=== PATIENT | female | born 1995 | race Caucasian/White ===

== ENCOUNTER 2016-08-29 14:57 | Emergency (ER) | payer OTHER ==
--- NOTE | 2016-08-29 15:18 | ED Physician Documentation ---
Upper Respiratory Symptoms - HISTORIAN Historian: patient - HPI Chief Complaint: Cough/ Upper Respiratory Further Comments: yes (One week history of cough, having some pain with breathing, productive of brown color. No blood. No wheezing noted. No sore throat, is having some sinus congestion. ears are not plug up, no fever or chills,) - ROS CONST/EYES: denies: weakness - PAST HX Lung Disease: none PE Risk Factors: other (pregnance) Surgeries/Procedures: none Immunizations: referred to PCP Allergies/Adverse Reactions: Allergies Allergy/AdvReac Type Severity Reaction Status Date / Time No Known Allergies Allergy Verified 08/29/16 15:16 Home Medications: Ambulatory Orders Medication Instructions Recorded Amoxicillin [Amoxil] 500 mg PO TID #30 capsule 08/29/16 Chs256/Iron Fumarate/FA/Dss 1 each PO DAILY 08/29/16 [ 19 Tablet] - SOCIAL HX Smoking History: less than 1 pack/day (2 ciragrettes a day) Alcohol Use: none Drug Use: none - FAMILY HX Family History: no significant history - VITAL SIGNS Vital Signs: Vital Signs Temp Pulse Resp BP Pulse Ox 110/68 03/19/16 21:10 Upper Respiratory Symptoms - EXAM General Appearance: mild distress EENT: eyes nml inspection, nose nml, pharyngeal erythema (mild). No: TM erythema, TM dullness (R), TM dullness (L) Neck: normal inspection, supple. No: lymphadenopathy Respiratory: no resp. distress, breath sounds nml, speaks full sentences, rhonchi (few right base). No: respiratory distress, prolonged expirations, decreased air movement, wheezes, rales Abdomen: non-tender, no organomegaly, nml bowel sounds, no distention, tenderness, other (FHT 158) Skin: color nml, no rash, warm,dry Neuro/Psych: oriented x3, neuro intact Discharge Clincal Impression: Bronchitis Additional Instructions: Drink a lot of fluids. Check your temp over the next several days. If you developed any respiratory difficulties to be seen or return to the ED. Take Amoxil as directed. Home Medications: Ambulatory Orders Amoxicillin [Amoxil] 500 mg PO TID #30 capsule 08/29/16 [id number]/Iron Fumarate/FA/Dss [ 19 Tablet] 1 each PO DAILY 08/29/16 Condition: Stable Disposition: 01 HOME, SELF-CARE Decision to Admit: NO Date of Decison to Admit: 08/29/16 Decision Time: 15:23
[2016-08-29 15:21] VITALS: BP 107/65
== END 2016-08-29 15:31 | disposition home or self-care (01) ==
LOC: ED 14:57
DX: J20.9 Acute bronchitis, unspecified (principal)
CPT/HCPCS: 99282

== ENCOUNTER 2016-10-19 17:27 | Emergency (ER) | payer OTHER ==
[2016-10-19 18:04] LABS: MEAN CORPUSCULAR HEMOGLOBIN 32.5 pg (28.0-34.0)
[2016-10-19 18:07] LABS: APPEARANCE,URINE Clear (CLEAR); COLOR,URINE Yellow (YELLOW); OCCULT BLOOD,URINE Negative (NEGATIVE); UROBILINOGEN URINE 0.2 Eu (0.2-1.0)
[2016-10-19 18:23] LABS: EOSINOPHILS % 1 % (0-7); MONOCYTES % 4 % (0-11); SEGMENTED NEUTROPHILS % 55 % (39-79)
[2016-10-19 18:24] LABS: eGFR (African) > 60; eGFR (Non-African) > 60
--- NOTE | 2016-10-19 19:01 | ED Physician Documentation ---
Abdominal Pain - HISTORIAN Historian: patient - HPI Stated Complaint: RLQ pain Chief Complaint: Abdominal Pain Additonal Information: began this am, intensifying throughout day, always right lower quadrant, some radiation to right low back, no dysuria, positive nausea, minimal diarrhea, low grade fever Onset: hours (9) Duration: constant, sudden-onset, worse Timing: still present Context: denies: out of country travel, bad food, recent trauma Severity: moderate Quality: sharp Front/Back of Body, Lg (Color): 1 - pain Associated Symptoms: fever, nausea, diarrhea. denies: vomiting Exacerbated by: nothing Relieved by: nothing Further Comments: no - ROS CONST: no problems GI/: none CVS/RESP: none EYES/ENT: none MS/SKIN/LYMPH: none NEURO/PSYCH: none - SOCIAL HX Smoking History: cigarettes Alcohol Use: none Drug Use: none - FAMILY HX Family History: none - PAST HX Past History: other (20 week IUP) Ischemic Bowel Risk Factors: none Other History: none Surgeries/Procedures: none Immunizations: referred to PCP Home Medications: Ambulatory Orders Medication Instructions Recorded [id number]/Iron Fumarate/FA/Dss 1 each PO DAILY 08/29/16 [ 19 Tablet] Allergies/Adverse Reactions: Allergies Allergy/AdvReac Type Severity Reaction Status Date / Time No Known Allergies Allergy Verified 10/19/16 17:54 - VITAL SIGNS Vital Signs: Vital Signs Temp Pulse Resp BP Pulse Ox 99.1 F 82 16 102/71 100 10/19/16 17:49 10/19/16 17:49 10/19/16 17:49 10/19/16 17:49 10/19/16 17:49 - REVIEWED ASSESSMENTS Nursing Assessment Reviewed: Yes Vitals Reviewed: Yes Progress - Results/Orders Results/Orders: cbc, cmp, ua unremarkable - Progress Progress: pt's pain untreated, kept npo until US can be done Critical Care Note - Critical Care Note Total Time (mins): 0 ED Results Lab/Radiology - Lab Results Lab Results: Lab Results 10/19/16 10/19/16 10/19/16 17:55 17:55 17:55 WBC RBC Hgb Hct MCV MCH MCHC RDW Plt Count Seg Neutrophils % Band Neutrophils % Lymphocytes % Monocytes % Eosinophils % Plt Morphology Comment RBC Morph Comment Sodium 135 mmol/L L mmol/L (136-145) Potassium 3.4 mmol/L L mmol/L (3.5-5.0) Chloride 104 mmol/L mmol/L (98-110) Carbon Dioxide 28 mmol/L mmol/L (20-32) BUN 6 mg/dL L mg/dL (10-26) Creatinine 0.6 mg/dL mg/dL (0.4-1.5) Estimated Creat Clear 165 Est GFR ( Amer) > 60 (60 - ) Est GFR (Non-Af Amer) > 60 (60 - ) Glucose 99 mg/dL mg/dL (70-99) Calcium 9.7 mg/dL mg/dL (8.5-10.5) Total Bilirubin 0.5 mg/dL mg/dL (0.2-1.2) AST 19 U/L U/L (0-41) ALT 13 U/L U/L (0-45) Alkaline Phosphatase 86 U/L U/L (46-116) Total Protein 7.2 g/dL g/dL (6.0-8.5) Albumin 4.2 g/dL g/dL (3.0-5.5) Urine Color Yellow (YELLOW) Urine Appearance Clear (CLEAR) Urine pH 7.0 (5.0 - 8.0) Ur Specific [place] 1.020 (1.010-1.030) Urine Protein Negative mg/dL mg/dL (NEGATIVE) Urine Ketones Trace mg/dL mg/dL (NEGATIVE) Urine Occult Blood Negative (NEGATIVE) Urine Nitrite Negative (NEGATIVE) Urine Bilirubin Negative (NEGATIVE) Urine Urobilinogen 0.2 Eu Eu (0.2-1.0) Ur Leukocyte Esterase Negative (NEGATIVE) Urine Glucose Negative mg/dL mg/dL (NEGATIVE) Urine HCG, Qual Positive H (NEGATIVE) 10/19/16 17:55 WBC 6.90 K/ul K/ul (4.00-12.00) RBC 3.95 M/ul M/ul (3.90-5.20) Hgb 12.8 g/dL g/dL (12.0-16.0) Hct 37.3 % % (34.5-46.5) MCV 94.3 fl fl (80.0-100.0) MCH 32.5 pg pg (28.0-34.0) MCHC 34.5 g/dL g/dL (30.0-36.0) RDW 12.5 % % (11.3-14.3) Plt Count 184 K/mm3 K/mm3 (130-400) Seg Neutrophils % 55 % % (39-79) Band Neutrophils % 33 % H % (0-12) Lymphocytes % 7 % L % (16-50) Monocytes % 4 % % (0-11) Eosinophils % 1 % % (0-7) Plt Morphology Comment Normal (NORMAL) RBC Morph Comment Normal (NORMAL) Sodium Potassium Chloride Carbon Dioxide BUN Creatinine Estimated Creat Clear Est GFR ( Amer) Est GFR (Non-Af Amer) Glucose Calcium Total Bilirubin AST ALT Alkaline Phosphatase Total Protein Albumin Urine Color Urine Appearance Urine pH Ur Specific [place] Urine Protein Urine Ketones Urine Occult Blood Urine Nitrite Urine Bilirubin Urine Urobilinogen Ur Leukocyte Esterase Urine Glucose Urine HCG, Qual - Radiology Radiology Impressions: none ordered, no US available at this hosp. - Orders Orders: ED Orders Category Date Time Status CBC/PLATELET/DIFF Routine Lab 10/19/16 17:55 Completed CMP Routine Lab 10/19/16 17:55 Completed URINALYSIS Routine Lab 10/19/16 17:55 Completed URINE HCG Routine Lab 10/19/16 17:55 Completed Abdominal Pain Physical Exam - Physical Exam General Appearance: alert, moderate distress EENT: eye inspection normal, ENT inspection normal, pharynx normal, no signs of dehydration, DALIA, no nystagmus, TM's nml NECK: normal inspection, thyroid normal, supple RESPIRATORY: no resp distress, chest non-tender, breath sounds normal CVS: reg rate & rhythm, heart sounds normal, equal pulses, no murmur, no gallop ABDOMEN: soft, no organomegaly, tenderness (right lower qwuadrant), decreased BS (very quiet), McBurney's point tenderne, rebound, other (positive heel slap on right side, right lower quadrant). No: mass BACK: other (positive L5-S1 tenderness right) SKIN: warm/dry, normal color EXTREMITIES: non-tender, normal range of motion, no evidence of injury NEURO: oriented X3, CN's nml as tested, motor nml, sensation nml Vital Signs: Vital Signs Temp Pulse Resp BP Pulse Ox 99.1 F 82 16 102/71 100 10/19/16 17:49 10/19/16 17:49 10/19/16 17:49 10/19/16 17:49 10/19/16 17:49 Discharge Clincal Impression: Abdominal pain Qualifiers: Abdominal location: right lower quadrant Qualified Code(s): R10.31 - Right lower quadrant pain Home Medications: Ambulatory Orders Bin578/Iron Fumarate/FA/Dss [ 19 Tablet] 1 each PO DAILY 08/29/16 Comments: Case discussed with OB geographic information systems director and ER physician at [facility]. Accept transfer by private vehicle through ER for US and OB eval. Condition: Stable Disposition: 02 XFER SHT-TRM HOSP Decision to Admit: NO Decision Time: 19:00
[2016-10-19] MEDS ORDERED: ONDANSETRON HCL 4 MG TAB.RAPDIS ONE (19:16)
[2016-10-19] MEDS: ONDANSETRON HCL 4 MG TAB.RAPDIS PO ONE (19:20)
[2016-10-19 19:51] VITALS: BP 108/70
== END 2016-10-19 19:00 | disposition short-term general hospital (02) ==
LOC: ED 17:27
DX: R10.31 Right lower quadrant pain (principal)
CPT/HCPCS: 80053; 81002; 81025; 85025; A9270; 99283; 99284

== ENCOUNTER 2017-02-15 17:51 | Emergency (ER) | payer OTHER ==
[2017-02-15 18:12] VITALS: BP 110/82
--- NOTE | 2017-02-15 18:32 | ED Physician Documentation ---
Abscess - HPI Stated Complaint: boil left inner thigh Chief Complaint: Abscess Additional Information: abscess lt inner thigh recurrent for past 2 yrs. pt is 37wks pg saw ob yest - did pelvic but did not respond to it and pt did not call attention to it. FHT= 135 slight vaginal spotting since pelvic yesterday-denies crapms or labor like pains Timing: worse (slight exab of abscess past several days. has had it for 2 yrs and it flares and remisses) Quality: itchy, painful Identified Cause?: No Context: Medication Exposure: other (pre vits and occ alb neb for allergic asthma like episodes) - ROS CONST: none CVS/RESP: none EYES/ENT: none GI/: none MS/SKIN/LYMPH: none NEURO/PSYCH: none - PAST HX Past History: none, other (pt is PARA 1-0-0-1 2) Surgeries/Procedures: No Allergies/Adverse Reactions: Allergies Allergy/AdvReac Type Severity Reaction Status Date / Time No Known Allergies Allergy Verified 02/15/17 18:04 Home Medications: Ambulatory Orders Medication Instructions Recorded [id number]/Iron Fumarate/FA/Dss 1 each PO DAILY 08/29/16 [ 19 Tablet] Cephalexin [Keflex] 500 mg PO QID #35 capsule 02/15/17 - SOCIAL HX Smoking History: cigarettes Alcohol Use: none Drug Use: none - FAMILY HX Family History: asthma - VITAL SIGNS Vital Signs: Vital Signs Temp Pulse Resp BP Pulse Ox 98.4 F 107 H 16 110/82 96 02/15/17 18:00 02/15/17 18:00 02/15/17 18:00 02/15/17 18:00 02/15/17 18:00 - REVIEWED ASSESSMENTS Nursing Assessment Reviewed: Yes Vitals Reviewed: Yes Abscess Physical Exam - EXAM General Appearance: mild distress Skin: warm,dry, erythema (plus tenderness of the 1.5cm nodule lt groin). No: cyanotic, diaphoretic, pallid, pointing fluctuant with lymphangitis Symptoms: warmth, tenderness Extremities: nml ROM, no edema EENT: eyes nml inspection Neck: trachea midline Respiratory: no resp distress, chest non-tender, breath sounds normal CVS: reg. rate & rhythm, heart sounds nml Neuro/Psych: oriented x3, mood/affect nml Discharge Clincal Impression: non fluctuant recurrent abscess groin, 37weeks ut , [id number], no active labor Prescriptions: Cephalexin [Keflex] 500 mg PO QID #35 capsule Referrals: Javier Langley MD [Primary Care Provider] - 2 Days Home Medications: Ambulatory Orders Omj650/Iron Fumarate/FA/Dss [ 19 Tablet] 1 each PO DAILY 08/29/16 Cephalexin [Keflex] 500 mg PO QID #35 capsule 02/15/17 Comments: to notify OB DOCTOR at next visit Condition: Good Disposition: HOME, SELF-CARE Decision to Admit: NO Decision Time: 18:32
== END 2017-02-15 18:20 | disposition home or self-care (01) ==
LOC: ED 17:51
DX: O23.593 Infection of other part of genital tract in pregnancy, third trimester (principal)
CPT/HCPCS: 99283; 99284

== ENCOUNTER 2017-03-25 17:40 | Emergency (ER) | payer OTHER ==
[2017-03-25 17:51] VITALS: BP 155/84
--- NOTE | 2017-03-25 18:18 | ED Physician Documentation ---
General Adult - HISTORIAN Historian: patient - HPI Stated Complaint: Sore to the Inner Thigh Chief Complaint: General Adult Onset: days ago Timing: still present Severity: moderate Further Comments: yes (Pt is a 21 yo female with an abscess on the L side of her groin. Pt had a similar larger abscess lateral to this on her L thigh several weeks ago. Childbirth 3 weeks ago.) - ROS CONST: no problems EYES/ENT: none CVS/RESP: none GI/: none MS/SKIN/LYMPH: other (abscess ) - PAST HX Past History: other (recent childbirth) Allergies/Adverse Reactions: Allergies Allergy/AdvReac Type Severity Reaction Status Date / Time No Known Allergies Allergy Verified 03/25/17 17:51 Home Medications: Ambulatory Orders Medication Instructions Recorded [id number]/Iron Fumarate/FA/Dss 1 each PO DAILY 08/29/16 [ 19 Tablet] - SOCIAL HX Smoking History: cigarettes - FAMILY HX Family History: No - VITAL SIGNS Vital Signs: Vital Signs Temp Pulse Resp BP Pulse Ox 98 F 97 H 18 155/84 99 03/25/17 17:40 03/25/17 17:40 03/25/17 17:40 03/25/17 17:40 03/25/17 17:40 - REVIEWED ASSESSMENTS Nursing Assessment Reviewed: Yes Vitals Reviewed: Yes Progress - Progress Progress: Rx Doxycycline 100 mg. Take one by mouth every 12 hrs for 10 days. 1st dose in ER. Rx [place]vue (5/325). Take 1 or 2 every 4 to 6 hrs as needed for moderate to severe pain. 2 tablets --> home. General Adult Physical Exam - PHYSICAL EXAM GENERAL APPEARANCE: mild distress NECK: normal inspection, supple RESPIRATORY: no resp distress, chest non-tender CVS: reg rate & rhythm, heart sounds normal ABDOMEN: soft, normal bowel sounds SKIN: other (2 cm abscess L thigh/groin, tender, erythematous) EXTREMITIES: non-tender, normal range of motion, no evidence of injury NEURO: oriented X3, motor nml, sensation nml Discharge Clincal Impression: Abscess Referrals: Javier Langley MD [Primary Care Provider] - Home Medications: Ambulatory Orders Wcm590/Iron Fumarate/FA/Dss [ 19 Tablet] 1 each PO DAILY 08/29/16 Condition: Good Disposition: HOME, SELF-CARE Decision to Admit: NO Decision Time: 18:18
[2017-03-25] MEDS: DOXYCYCLINE MONOHYDRATE 100 MG CAPSULE PO ONE (18:36)
[2017-03-25] MEDS: HYDROcodone /APAP 5/325 1 EACH TABLET PO ONE (18:37)
== END 2017-03-25 18:43 | disposition home or self-care (01) ==
LOC: ED 17:40
DX: L02.91 Cutaneous abscess, unspecified (principal)
CPT/HCPCS: 99283

== ENCOUNTER 2017-05-12 19:23 | Emergency (ER) | payer OTHER ==
--- NOTE | 2017-05-12 19:41 | ED Physician Documentation ---
Lower Extremity Injury - HISTORIAN Historian: patient - HPI Chief Complaint: Lower Extremity Injury Onset: minutes (20) Where: home Severity: moderate Context: direct blow (patient states that she was running after her son when he stopped and hit her knee against him, he did not have any injuries,) Associated Symptoms:: denies: tingling, numbness distally, popping sensation Modifying Factors:: pain on movement - ROS CONST: denies: fever, chills - PAST HX Past History: none Immunizations: referred to PCP Allergies/Adverse Reactions: Allergies Allergy/AdvReac Type Severity Reaction Status Date / Time No Known Allergies Allergy Verified 05/12/17 19:49 Home Medications: Ambulatory Orders Medication Instructions Recorded Norgestimate-Ethinyl Estradiol 1 tab PO D 05/12/17 [Sprintec 28 Day Tablet] - SOCIAL HX Smoking History: less than 1 pack/day (08/16 ppd) Alcohol Use: none Drug Use: none - FAMILY HX Family History: no significant history - VITAL SIGNS Vital Signs: Vital Signs Temp Pulse Resp BP Pulse Ox 68 14 125/75 100 05/12/17 19:24 05/12/17 19:24 05/12/17 19:24 05/12/17 19:24 - REVIEWED ASSESSMENTS Nursing Assessment Reviewed: Yes Vitals Reviewed: Yes ED Results Lab/Radiology - Radiology Radiology Impressions: Patient Study Name: ZAHEER DICK Date: May 12, 2017 8:19:26 PM CDT Modality Type: CR Gender: F Description: LOWER EXTREMITY : 95 Institution: [facility] Physician: NAVIN DODGE - ER Examination: Plain film knee History: Knee discomfort Findings: 3 views of the knee demonstrates normal cortical margins. No fracture. No dislocation. No joint effusion. No soft tissue irregularity. Impression: No acute osseous abnormality - Orders Orders: ED Orders Category Date Time Status Knee Immobilizer 1T Care 05/12/17 20:46 Active KNEE 3 VIEWS [RAD] Stat Exams 05/12/17 Completed Lower Extremities Injury Phy - Physical Exam General Appearance: alert, mild distress Hips: bilateral hip: non-tender, normal inspection, normal range of motion, no evidence of injury Legs: bilateral: non-tender, normal inspection, normal range of motion, no evidence of injury Knees: right: pain, soft tissue tenderness (medial superior knee), left: non- tender, normal inspection, no evidence of injury, bilateral: normal range of motion, N/A: deformity (none), ecchymosis (none), joint effusion (none), swelling (none) Ankle: bilateral: non-tender, normal inspection, normal range of motion, no evidence of injury DTR - Lower Extremities: knee (R): 2+, knee (L): 2+, ankle (R): 2+, ankle (L): 2 + Ligaments: pain on anterior drawer, pain on posterior drawer, pain on medial stress. No: laxity on anterior drawer, laxity on posterior drawe, laxity on medial stress, pain on lateral stress, laxity on lateral stress Gait: limited by pain Neuro/Vascular/Tendon: no vascular compromise, motor nml, sensation nml Resp/CVS: chest non-tender, breath sounds nml, heart sounds nml, no resp. distress, lungs clear, reg. rate & rhythm Discharge Clincal Impression: Contusion, knee Qualifiers: Encounter type: initial encounter Laterality: right Qualified Code(s): S80.01XA - Contusion of right knee, initial encounter Referrals: Javier Langley MD [Primary Care Provider] - 2 Days Additional Instructions: Keep a cool compress on the knee for the next 12 hours. Take some Aleve 220mg tablets, 2 tablets with food twice a day as needed for pain. Condition: Stable Disposition: 01 HOME, SELF-CARE Decision to Admit: NO Date of Decison to Admit: 05/12/17 Decision Time: 20:36
--- NOTE | 2017-05-12 20:52 | Diagnostic Imaging Report ---
NAVIN DODGE [facility] [address] [facility] [address] Report Submission Date: May 12, 2017 8:41:27 PM CDT Patient Study Name: ZAHEER DICK Date: May 12, 2017 8:19:26 PM CDT Modality Type: CR Gender: F Description: LOWER EXTREMITY : 95 Institution: [facility] Physician: NAVIN DODGE Examination: Plain film knee History: Knee discomfort Findings: 3 views of the knee demonstrates normal cortical margins. No fracture. No dislocation. No joint effusion. No soft tissue irregularity. Impression: No acute osseous abnormality Electronically signed on May 12, 2017 8:41:27 PM CDT by: Maykel PHELAN
[2017-05-12 21:33] VITALS: BP 124/73
== END 2017-05-12 20:55 | disposition home or self-care (01) ==
LOC: ED 19:23
DX: S80.01XA Contusion of right knee, initial encounter (principal)
CPT/HCPCS: 73562; L1830; 99283

== ENCOUNTER 2017-06-21 19:25 | Emergency (ER) | payer OTHER ==
[2017-06-21 20:04] LABS: BASOPHILS % 0.7 (0.0-1.5); MEAN CORPUSCULAR HEMOGLOBIN 29.1 pg (28.0-34.0); MONOCYTES % 4.8 % (0.0-11.0); NEUTROPHILS # 3.3 # k/uL (1.4-7.7)
[2017-06-21] MEDS: 0.9 % SODIUM CHLORIDE 1,000 ML IV ONE (20:05)
[2017-06-21] MEDS: ONDANSETRON HCL/PF 4 MG/ 2ML VIAL IVP ONE (20:06)
[2017-06-21 20:19] LABS: eGFR (African) > 60; eGFR (Non-African) > 60
--- NOTE | 2017-06-21 20:25 | ED Physician Documentation ---
General Adult - HISTORIAN Historian: patient - HPI Stated Complaint: Right side abdominal pain Chief Complaint: General Adult Onset: hours Timing: still present Severity: moderate Further Comments: yes (Pt is a 21 yo female with RLQ pain that began this am. Pt has had similar presentation in the past. Pt is 3 months post childbirth. Pt is on control and is not . Pt has had some diarrhea and nausea, but no vomiting. Pt has not had urinary sx.) - ROS CONST: fever, chills EYES/ENT: none CVS/RESP: none GI/: abdominal pain, nausea, diarrhea MS/SKIN/LYMPH: none - PAST HX Past History: other (childbirth 3 mos ago) Allergies/Adverse Reactions: Allergies Allergy/AdvReac Type Severity Reaction Status Date / Time No Known Allergies Allergy Verified 06/21/17 19:42 Home Medications: Ambulatory Orders Medication Instructions Recorded Norgestimate-Ethinyl Estradiol 1 tab PO D 05/12/17 [Sprintec 28 Day Tablet] Cephalexin [Keflex] 500 mg PO Q12H #14 capsule 06/21/17 - SOCIAL HX Smoking History: cigarettes - FAMILY HX Family History: No - VITAL SIGNS Vital Signs: Vital Signs Temp Pulse Resp BP Pulse Ox 100.9 F H 82 16 120/86 100 06/21/17 19:28 06/21/17 19:28 06/21/17 19:28 06/21/17 19:28 06/21/17 19:28 - REVIEWED ASSESSMENTS Nursing Assessment Reviewed: Yes Vitals Reviewed: Yes Progress - Progress Progress: NS 1 L IVF Zofran 4 mg IV improved after IVF U/a 1+ Leuk Rx Keflex 500 mg po q 12 h x 7 days, 1st dose in ER. ED Results Lab/Radiology - Lab Results Lab Results: Lab Results 06/21/17 06/21/17 19:57 19:57 WBC 6.00 K/ul K/ul (4.00-12.00) RBC 4.60 M/ul M/ul (3.90-5.20) Hgb 13.4 g/dL g/dL (12.0-16.0) Hct 40.9 % % (34.5-46.5) MCV 89.0 fl fl (80.0-100.0) MCH 29.1 pg pg (28.0-34.0) MCHC 32.8 g/dL g/dL (30.0-36.0) RDW 12.4 % % (11.3-14.3) Plt Count 243 K/mm3 K/mm3 (130-400) Neut % (Auto) 54.7 % % (39.0-79.0) Lymph % (Auto) 33.2 % % (16.0-50.0) [place] % (Auto) 4.8 % % (0.0-11.0) Eos % (Auto) 5.0 % % (0.0-6.8) Baso % (Auto) 0.7 (0.0-1.5) Neut # (Auto) 3.3 # k/uL # k/uL (1.4-7.7) Lymph # (Auto) 2.0 # k/uL # k/uL (0.6-4.0) [place] # (Auto) 0.3 # k/uL # k/uL (0.0-0.9) Eos # (Auto) 0.3 # k/uL # k/uL (0.0-0.6) Baso # (Auto) 0.0 # k/uL # k/uL (0.0-0.5) Reactive Lymphs % 1.6 % % (0.0-5.0) Reactive Lymphs # 0.1 # k/uL # k/uL (0.0-0.8) Sodium 136 mmol/L mmol/L (136-145) Potassium 4.2 mmol/L mmol/L (3.5-5.1) Chloride 100 mmol/L mmol/L (98-107) Carbon Dioxide 28 mmol/L mmol/L (22-30) BUN 15 mg/dL mg/dL (7-17) Creatinine 1.10 mg/dL H mg/dL (0.52-1.04) Estimated Creat Clear 88 Est GFR ( Amer) > 60 (60 - ) Est GFR (Non-Af Amer) > 60 (60 - ) Glucose 73 mg/dL L mg/dL (74-106) Calcium 9.6 mg/dL mg/dL (8.4-10.2) Total Bilirubin 0.1 mg/dL L mg/dL (0.2-1.3) AST 17 U/L U/L (15-46) ALT 25 U/L U/L (13-69) Alkaline Phosphatase 71 U/L U/L (38-126) Total Protein 7.6 g/dL g/dL (6.3-8.2) Albumin 4.2 g/dL g/dL (3.5-5.0) - Orders Orders: ED Orders Category Date Time Status Place IV Lock 1T Care 06/21/17 19:40 Active CBC/PLATELET/DIFF Routine Lab 06/21/17 19:57 Completed CMP Routine Lab 06/21/17 19:57 Completed LIPASE Stat Lab 06/21/17 20:20 Received SERUM HCG Routine Lab 06/21/17 19:57 Received URINALYSIS Routine Lab 06/21/17 Ordered 0.9 % Sodium Chloride [Normal Saline] 1,000 ml Med 06/21/17 19:40 Active IV Q1H Ondansetron HCl/Pf [Zofran 4 mg/2 ml] Med 06/21/17 19:41 Discontinued 4 mg IVP NOW ONE General Adult Physical Exam - PHYSICAL EXAM GENERAL APPEARANCE: moderate distress EENT: pharynx normal NECK: normal inspection, supple RESPIRATORY: no resp distress, chest non-tender, breath sounds normal CVS: reg rate & rhythm, heart sounds normal ABDOMEN: soft, no organomegaly, decreased BS, other (mild RLQ tenderness) BACK: CVA tenderness (R) SKIN: warm/dry, normal color EXTREMITIES: non-tender, normal range of motion, no evidence of injury, no edema NEURO: oriented X3, motor nml, sensation nml Discharge Clincal Impression: UTI (urinary tract infection) Qualifiers: Urinary tract infection type: site unspecified Hematuria presence: without hematuria Qualified Code(s): N39.0 - Urinary tract infection, site not specified Prescriptions: Cephalexin [Keflex] 500 mg PO Q12H #14 capsule Referrals: Javier Langley MD [Primary Care Provider] - 2 Days Condition: Stable Disposition: 01 HOME, SELF-CARE Decision to Admit: NO Decision Time: 21:26
[2017-06-21] MEDS: CEPHALEXIN 250 MG CAPSULE PO ONE (21:30)
[2017-06-21 21:41] VITALS: BP 128/78
[2017-06-22 05:38] LABS: APPEARANCE,URINE CLEAR (CLEAR); COLOR,URINE YELLOW (YELLOW); OCCULT BLOOD,URINE NEGATIVE (NEGATIVE); URINE HCG NEGATIVE (NEGATIVE); UROBILINOGEN URINE 0.2 Eu (0.2-1.0)
== END 2017-06-21 21:40 | disposition home or self-care (01) ==
LOC: ED 19:25
DX: N39.0 Urinary tract infection, site not specified (principal)
CPT/HCPCS: 80053; 81002; 81025; 83690; 84703; 85025; 87086; 96361; 96374; 99283; J2405; J7030; S1016

== ENCOUNTER 2017-08-24 18:36 | Emergency (ER) | payer OTHER ==
[2017-08-24] MEDS ORDERED: 0.9 % SODIUM CHLORIDE 1,000 ML IV ONE (18:59)
[2017-08-24] MEDS ORDERED: KETOROLAC TROMETHAMINE 30 MG/1ML VIAL IVP ONE (18:59)
[2017-08-24 19:44] LABS: BASOPHILS % 0.8 (0.0-1.5); EOSINOPHILS % 2.9 % (0.0-6.8); MEAN CORPUSCULAR HEMOGLOBIN 30.7 pg (28.0-34.0); MEAN CORPUSCULAR VOLUME 91.7 fl (80.0-100.0); MONOCYTES % 2.9 % (0.0-11.0); NEUTROPHILS # 4.2 # k/uL (1.4-7.7)
[2017-08-24 19:51] LABS: eGFR (African) > 60; eGFR (Non-African) > 60
--- NOTE | 2017-08-24 20:00 | Diagnostic Imaging Report ---
JOSE GUADALUPE RODRIGUEZ [facility] [address] [facility] [address] [place], [place]. [address] Report Submission Date: Aug 24, 2017 7:51:47 PM WATER CHASER Patient Study Name: ZAHEER DICK Date: Aug 24, 2017 7:23:34 PM WATER CHASER Modality Type: CT\SR Gender: F Description: CT BRAIN W/O CONTRAST : 95 Institution: [facility] Physician: JOSE GUADALUPE RODRIGUEZ Examination: CT head without contrast History: Numbness Comparison exam: None available Technique: Noncontrast head CT protocol. Findings: Ventricles and sulci are appropriate for patient age. Cerebrocerebellar parenchyma demonstrates normal attenuation. No evidence for parenchymal hemorrhage. No evidence for mass or mass effect. No midline shift. No extra axial fluid collections. Partial visualization of the paranasal sinuses , mastoid air cells, orbits, skull and scalp without gross irregularity. Impression: No acute parenchymal process. No hemorrhage. Electronically signed on Aug 24, 2017 7:51:47 PM WATER CHASER by: Maykel PHELAN
--- NOTE | 2017-08-24 20:01 | ED Physician Documentation ---
General Adult - HISTORIAN Historian: patient - HPI Stated Complaint: Left Ear Pain Chief Complaint: General Adult Additional Information: was feeding her daughter, felt a pop in left ear and instant weakness in left upper ext only. Onset: minutes (30) Timing: still present Severity: moderate Modifying Factors: none Context: feeding daughter Quality: moderate weakness and numbness only in left upper ext. Location: left uper ext. Further Comments: no - ROS CONST: no problems EYES/ENT: none CVS/RESP: none GI/: none MS/SKIN/LYMPH: other (left arm pain, left neck pain) NEURO/PSYCH: numbness (left upper ext.), other (oberved using left arm to take off jacket while distracted with questions). denies: headache, fainting, dizziness, difficulty walking, difficulty with speech - PAST HX Past History: other (asthma) Other History: none Surgeries/Procedures: none Immunizations: referred to PCP Allergies/Adverse Reactions: Allergies Allergy/AdvReac Type Severity Reaction Status Date / Time No Known Allergies Allergy Verified 08/24/17 18:50 Home Medications: Ambulatory Orders Medication Instructions Recorded NK [NK] 08/24/17 - SOCIAL HX Smoking History: cigarettes Alcohol Use: none Drug Use: none - FAMILY HX Family History: Yes - VITAL SIGNS Vital Signs: Vital Signs Temp Pulse Resp BP Pulse Ox 98.6 F 82 18 143/92 100 08/24/17 18:40 08/24/17 18:40 08/24/17 18:40 08/24/17 18:40 08/24/17 18:40 - REVIEWED ASSESSMENTS Nursing Assessment Reviewed: Yes Vitals Reviewed: Yes Progress - Results/Orders Results/Orders: ct head and cervical spine, cbc, cmp, uas, uds ordered - Progress Progress: Pt. given 30 mg Toradol IVP and 1 liter NS Critical Care Note - Critical Care Note Total Time (mins): 0 ED Results Lab/Radiology - Lab Results Lab Results: Lab Results 08/24/17 08/24/17 19:38 19:38 WBC 7.40 K/ul K/ul (4.00-12.00) RBC 4.92 M/ul M/ul (3.90-5.20) Hgb 15.1 g/dL g/dL (12.0-16.0) Hct 45.1 % % (34.5-46.5) MCV 91.7 fl fl (80.0-100.0) MCH 30.7 pg pg (28.0-34.0) MCHC 33.5 g/dL g/dL (30.0-36.0) RDW 12.8 % % (11.3-14.3) Plt Count 216 K/mm3 K/mm3 (130-400) Neut % (Auto) 56.3 % % (39.0-79.0) Lymph % (Auto) 35.8 % % (16.0-50.0) [place] % (Auto) 2.9 % % (0.0-11.0) Eos % (Auto) 2.9 % % (0.0-6.8) Baso % (Auto) 0.8 (0.0-1.5) Neut # (Auto) 4.2 # k/uL # k/uL (1.4-7.7) Lymph # (Auto) 2.7 # k/uL # k/uL (0.6-4.0) [place] # (Auto) 0.2 # k/uL # k/uL (0.0-0.9) Eos # (Auto) 0.2 # k/uL # k/uL (0.0-0.6) Baso # (Auto) 0.1 # k/uL # k/uL (0.0-0.5) Reactive Lymphs % 1.2 % % (0.0-5.0) Reactive Lymphs # 0.1 # k/uL # k/uL (0.0-0.8) Sodium 141 mmol/L mmol/L (136-145) Potassium 3.7 mmol/L mmol/L (3.5-5.1) Chloride 100 mmol/L mmol/L (98-107) Carbon Dioxide 26 mmol/L mmol/L (22-30) BUN 10 mg/dL mg/dL (7-17) Creatinine 0.90 mg/dL mg/dL (0.52-1.04) Estimated Creat Clear 108 Est GFR ( Amer) > 60 (60 - ) Est GFR (Non-Af Amer) > 60 (60 - ) Glucose 82 mg/dL mg/dL (74-106) Calcium 10.0 mg/dL mg/dL (8.4-10.2) Total Bilirubin 0.4 mg/dL mg/dL (0.2-1.3) AST 20 U/L U/L (15-46) ALT 28 U/L U/L (13-69) Alkaline Phosphatase 87 U/L U/L (38-126) Total Protein 8.4 g/dL H g/dL (6.3-8.2) Albumin 4.9 g/dL g/dL (3.5-5.0) - Radiology Radiology Impressions: CT head neg for pathology - Orders Orders: ED Orders Category Date Time Status Place IV Lock 1T Care 08/24/17 18:[address] BRAIN W/O CONTRAST Stat Exams 08/24/[address] C-SPINE W/O CONTRAST Stat Exams 08/24/17 Taken CBC/PLATELET/DIFF Routine Lab 08/24/17 19:38 Completed CMP Routine Lab 08/24/17 19:38 Completed DRUG SCREEN URINE MEDICAL ONLY Routine Lab 08/24/17 Ordered URINALYSIS Routine Lab 08/24/17 Ordered URINE HCG Routine Lab 08/24/17 Ordered 0.9 % Sodium Chloride [Normal Saline] 1,000 ml Med 08/24/17 18:59 Active IV Q1H Ketorolac Tromethamine [Toradol] Med 08/24/17 18:59 Discontinued 30 mg IVP NOW ONE General Adult Physical Exam - PHYSICAL EXAM GENERAL APPEARANCE: mild distress EENT: eye inspection normal, ENT inspection normal, pharynx normal, no signs of dehydration, DALIA, no nystagmus, TM's nml NECK: normal inspection, supple. No: thyromegaly, lymphadenopathy, stiff neck RESPIRATORY: no resp distress, chest non-tender, breath sounds normal CVS: reg rate & rhythm, heart sounds normal, equal pulses, no murmur, no gallop , PMI nml, no JVD ABDOMEN: soft, no organomegaly, normal bowel sounds, no abdominal bruit, no distension, non-tender BACK: normal inspection, no CVA tenderness SKIN: warm/dry, normal color EXTREMITIES: non-tender, normal range of motion, no evidence of injury, no edema , other (Grasp: 2-3/5 left, 5/5 right upper exts on presentation, 5/5 and equal by time of discharge. Forearm strength 2-3/5 left, 5/5/ right upper exts on presentation, 5/5/ and equal by time of discharge. Upper arm strength 2-3/5 left and 5/5 right upper exts at time of presentation and 5/5 by time of discharge. Strength lower exts 5/5 and equal at all times in ER. ) NEURO: oriented X3, CN's nml as tested, mood/affect nml, cognition normal, weakness/sensory loss (sensation diminished in glove like distribution left hand and full on left on presentation. Sensation full and equal both hands by time of discharge.), depressed mood/affect. No: facial droop, asymmetric reflexes Discharge Clincal Impression: Neuropathy Referrals: Javier Langley MD [Primary Care Provider] - 2 Days Comments: Pt. discharged in stable condition with script for Macrodantin 100 mg 1 p.o. bid #14 and Meloxicam 7.5 mg #10 1 p.o. twice daily, both generic with no refill. Condition: Stable Disposition: 01 HOME, SELF-CARE Decision to Admit: NO Decision Time: 20:01
--- NOTE | 2017-08-24 20:06 | Diagnostic Imaging Report ---
JOSE GUADALUPE RODRIGUEZ [facility] [address] [facility] [address] [place], [place]. [address] Report Submission Date: Aug 24, 2017 8:05:29 PM HYDRATOR OPERATOR Patient Study Name: ZAHEER DICK Date: Aug 24, 2017 7:27:51 PM HYDRATOR OPERATOR Modality Type: CT\SR Gender: F Description: CT C-SPINE W/O CONTRAS : 95 Institution: [facility] Physician: JOSE GUADALUPE RODRIGUEZ Examination: CT cervical spine History: Left arm numbness. Comparison exams: None provided Technique: CT cervical spine axial imaging with sagittal and coronal reconstruction Findings: Sagittal reconstruction demonstrates normal height and alignment the cervical vertebral bodies. No anterior compression deformity. Coronal reconstruction does not demonstrate locked or perched facets. No atlantoaxial abnormality. Axial imaging obtained from the skull base through T1 Lamina and pedicles are intact. No ossific density within the central canal. No prevertebral soft tissue abnormality. Impression: No evidence for acute osseous process. If patient's symptoms persist, consider obtaining MRI to further evaluate. Electronically signed on Aug 24, 2017 8:05:29 PM HYDRATOR OPERATOR by: Maykel PHELAN
[2017-08-24] MEDS ORDERED: NITROFURANTOIN 100 MG CAPSULE PO ONE (20:31)
[2017-08-24 20:43] VITALS: BP 113/62
[2017-08-25 07:55] LABS: APPEARANCE,URINE CLOUDY (CLEAR); COLOR,URINE YELLOW (YELLOW)
[2017-08-25 07:56] LABS: OCCULT BLOOD,URINE NEGATIVE (NEGATIVE)
== END 2017-08-24 20:37 | disposition home or self-care (01) ==
LOC: ED 18:36
DX: G62.9 Polyneuropathy, unspecified (principal)
CPT/HCPCS: 70450; 72125; 80053; 81002; 81025; 85025; 87086; 96365; 96375; 99283; J1885; J7030; S1016

== ENCOUNTER 2019-06-18 16:49 | Outpatient (CLI) | payer OTHER ==
[2018-12-20 00:55] VITALS: BP 118/62
[2019-06-18 17:47] LABS: BASOPHILS % 0.5 % (0.0-1.5); NEUTROPHILS # 3.7 # k/uL (1.4-7.7)
[2019-06-18 18:33] LABS: eGFR (Non-African) > 60
== END 2019-06-18 16:54 ==
LOC: LAB 16:49
PROVIDERS: ATTEND Family Medicine
DX: R63.4 Abnormal weight loss (principal)
CPT/HCPCS: 36415; 80053; 84439; 84443; 84481; 85025

== ENCOUNTER 2019-07-12 22:57 | Emergency (ER) | payer OTHER ==
[2019-07-12] MEDS ORDERED: AZITHROMYCIN 250 MG TABLET PO ONE (23:50)
--- NOTE | 2019-07-12 23:51 | ED Physician Documentation ---
General Adult - HISTORIAN Historian: patient - HPI Stated Complaint: "My left ear hurts" Chief Complaint: General Adult Onset: days ago Timing: still present Severity: moderate Further Comments: yes (Pt is a 23 yo female with c/o L ear pain x 3 weeks, and oral lesions x 2 days. Pt was told that she had TMJ d/o and has an appointment for ENT eval on Jul 31, 2019. Pt states that hearing in L ear is muffled. Lesions in mouth, which are new since ENT referral was arranged, are making it very bothersome for pt to eat.) - ROS CONST: no problems EYES/ENT: other (lesions in mouth, making it difficult to eat, L ear muffled sounds, hx dx possible TMJ) CVS/RESP: none GI/: none MS/SKIN/LYMPH: none - PAST HX Past History: other () Allergies/Adverse Reactions: Allergies Allergy/AdvReac Type Severity Reaction Status Date / Time No Known Drug Allergies Allergy Verified 07/12/19 23:13 Home Medications: Ambulatory Orders Medication Instructions Recorded Azithromycin 250 mg PO DAILY #5 tablet 07/13/19 - SOCIAL HX Smoking History: cigarettes - FAMILY HX Family History: No - VITAL SIGNS Vital Signs: Vital Signs Temp Pulse Resp BP Pulse Ox 98.2 F 71 16 128/72 100 07/12/19 23:00 07/12/19 23:00 07/12/19 23:00 07/12/19 23:00 07/12/19 23:00 - REVIEWED ASSESSMENTS Nursing Assessment Reviewed: Yes Vitals Reviewed: Yes Progress - Progress Progress: Pt has hx possible TMJ with appointment with ENT scheduled for Jul 31. She has possible auditory tube dysfunction with muffled sounds and pain in L ear. Most significant, however, are lesions on the upper palate just behind the upper incisors. These resemble condylomata and have been getting more and more painful when they are disturbed when pt tries to eat food, such that she is finding it very bothersome or difficult to eat. Will tx with Azithromycin for congestion contributing to L ear pain. Pt may try autoinsufflation or nasal washes for auditory tube dysfunction, but pt mainly needs f/u with ENT for evaluation of oral lesions. Lesions are new since ENT referral was initially made. Pt will contact ENT and/or pcp to facilitate more prompt evaluation. Azithromycin 500 mg po in ER for congestion, ? sinus pain D/c instruction: Rx Azithromycin 250 mg. Take one by mouth once daily for 5 days for congestion. Follow up with primary provider for earlier ENT (Ear, Nose, & Throat) referral for evaluation of oral lesions. ED Results Lab/Radiology - Orders Orders: ED Orders Category Date Time Status Azithromycin [Zithromax] Med 07/12/19 23:50 Once 500 mg PO NOW ONE General Adult Physical Exam - PHYSICAL EXAM GENERAL APPEARANCE: mild distress EENT: other (lesions resembling condylomata on upper palatte behind the upper incisors) NECK: normal inspection, supple RESPIRATORY: no resp distress, chest non-tender, breath sounds normal CVS: reg rate & rhythm, heart sounds normal BACK: normal inspection SKIN: warm/dry, normal color EXTREMITIES: non-tender, normal range of motion, no evidence of injury NEURO: oriented X3, motor nml, sensation nml Discharge Clincal Impression: congestion, L ear pain, oral lesions Prescriptions: Azithromycin 250 mg PO DAILY #5 tablet Referrals: Primary Doctor,No [Primary Care Provider] - Condition: Stable Disposition: 01 HOME, SELF-CARE Decision to Admit: NO Decision Time: 00:10
[2019-07-13 00:23] VITALS: BP 109/77
== END 2019-07-13 00:05 | disposition home or self-care (01) ==
LOC: ED 22:57
DX: K13.70 Unspecified lesions of oral mucosa (principal); R09.81 Nasal congestion; H92.02 Otalgia, left ear; F17.210 Nicotine dependence, cigarettes, uncomplicated
CPT/HCPCS: 99283; 99284

== ENCOUNTER 2019-08-11 14:05 | Emergency (ER) | payer SELFPAY ==
--- NOTE | 2019-08-11 14:18 | ED Physician Documentation ---
General Adult - VITAL SIGNS Vital Signs: Vital Signs Temp Pulse Resp BP Pulse Ox 72 16 121/87 100 08/11/19 14:13 08/11/19 14:13 08/11/19 14:13 08/11/19 14:13 <Gi Garcia - Last Filed: 08/11/19 15:30> - HISTORIAN Historian: patient - HPI Stated Complaint: L shoulder injury Chief Complaint: General Adult Onset: minutes Timing: still present Severity: moderate Further Comments: yes (Pt is a 23 yo female with injury to her L shoulder. Pt fell while going down stairs and tried to support herself with her L arm against the side wall, and hyperextended her L shoulder. Pt is inhibited about moving at the shoulder.) - ROS CONST: no problems EYES/ENT: none CVS/RESP: none GI/: none MS/SKIN/LYMPH: other (L shoulder injury) - PAST HX Past History: other (depression) - SOCIAL HX Smoking History: cigarettes - FAMILY HX Family History: No - VITAL SIGNS Vital Signs: Vital Signs Temp Pulse Resp BP Pulse Ox 109/77 07/13/19 00:00 - REVIEWED ASSESSMENTS Nursing Assessment Reviewed: Yes Vitals Reviewed: Yes <Tony Dunn - Last Filed: 08/14/19 16:07> - PAST HX Allergies/Adverse Reactions: Allergies Allergy/AdvReac Type Severity Reaction Status Date / Time No Known Drug Allergies Allergy Verified 08/11/19 14:24 Home Medications: Ambulatory Orders Medication Instructions Recorded Control Pills QDAY 08/11/19 FLUoxetine HCL [Prozac] 10 mg PO QD 08/11/19 Progress - Progress Progress: 1525: discussed results and plan - she is agreeable DG <Gi Garcia - Last Filed: 08/11/19 15:30> - Progress Progress: Care transferred to Gi Garcia at 2:30 pm. X-ray L shoulder: No acute osseous process. <Tony Dunn - Last Filed: 08/14/19 16:07> ED Results Lab/Radiology - Orders Orders: ED Orders Category Date Time Status SHOULDER 2 VIEWS OR MORE [RAD] Stat Exams 08/11/19 Completed URINE HCG Stat Lab 08/11/19 14:33 Ordered Ketorolac Tromethamine [Toradol] Med 08/11/19 15:08 Discontinued 60 mg IM NOW ONE Orphenadrine Citrate [Norflex] Med 08/11/19 15:08 Discontinued 60 mg IM NOW ONE <Gi Garcia - Last Filed: 08/11/19 15:30> General Adult Physical Exam - PHYSICAL EXAM GENERAL APPEARANCE: mild distress NECK: normal inspection, supple RESPIRATORY: no resp distress, chest non-tender, breath sounds normal CVS: reg rate & rhythm, heart sounds normal ABDOMEN: soft, no organomegaly, normal bowel sounds BACK: normal inspection SKIN: warm/dry, normal color EXTREMITIES: other (tenderness L shoulder; inhibited movement; pt holds L shoulder elevated; clavical appears intact) NEURO: oriented X3, motor nml, sensation nml <Tony Dunn - Last Filed: 08/14/19 16:07> Discharge Comments: 1. Continue OTC meds as directed as needed for pain 2. Ice for comfort 3. Follow up with PCP in 2-4 days if continued pain 4. Return to ER for any increased concerns <Gi Garcia - Last Filed: 08/11/19 15:30> Decision to Admit: NO Decision Time: 15:50 <Tony Dunn - Last Filed: 08/14/19 16:07> Clincal Impression: L shoulder injury Referrals: Primary Doctor,No [Primary Care Provider] - Condition: Stable Disposition: 01 HOME, SELF-CARE
--- NOTE | 2019-08-11 15:03 | Diagnostic Imaging Report ---
PATIENT MR#: [id number] PATIENT PATIENT NAME: ZAHEER GREWAL DATE OF : 1995 REFERRING PHYSICIAN: Gi Garcia EXAM DATE: 08/11/2019 ACCESSION NUMBER: [id number] EXAM DESCRIPTION: SHOULDER 2 VIEWS OR MORE Examination: Plain film left shoulder History: LEFT SHOULDER INJURY; HYPEREXTENDED; FAL Comparison exams: None provided Findings: 3 views of the left shoulder demonstrate normal cortical margins. No evidence for fracture or dislocation. No soft tissue abnormality Impression: No acute osseous process. Read by: Dr. Maykel Maldonado Transcribed by: Transcribed Date: Electronically signed by: Dr. Maykel Maldonado Date signed: 08/11/2019 3:02:49 PM
[2019-08-11] MEDS ORDERED: ORPHENADRINE CITRATE 60 MG/2 ML ML IM ONE (15:08)
[2019-08-11] MEDS ORDERED: KETOROLAC TROMETHAMINE 60 MG/2 ML VIAL IM ONE (15:08)
[2019-08-11 15:52] VITALS: BP 121/72
== END 2019-08-11 15:44 | disposition home or self-care (01) ==
LOC: ED 14:05
DX: S49.92XA Unspecified injury of left shoulder and upper arm, initial encounter (principal); W10.9XXA Fall (on) (from) unspecified stairs and steps, initial encounter
CPT/HCPCS: 73030; 81025; 96372; 99282; 99284; J1885; J2360